=== PATIENT | male | born 1950 | race Caucasian/White ===

== ENCOUNTER 2018-06-07 11:00 | Inpatient (IN) | payer OTHER ==
[~2018-06-07] VITALS: Ht 170.2 cm; Wt 82.6 kg
[2018-06-13] MEDS ORDERED: CELEBREX200MG PO (10:40)
[2018-06-13] MEDS ORDERED: GABAPENTIN800 MG PO (10:41)
[2018-06-13] MEDS ORDERED: EFFEXOR XR75 MG PO (10:41)
[2018-06-13] MEDS ORDERED: [UNRECOGNIZED DRUG - OTHER] PO (10:41)
[2018-06-19] MEDS ORDERED: TRAZODONE HCL150 MG PO (09:19)
[2018-06-20] MEDS ORDERED: DOCUSATE SODIU100 MG PO (12:13)
[2018-06-20] MEDS ORDERED: CLONAZEPAM1 MG PO (12:15)
[2018-06-20] MEDS ORDERED: PERCOCET 5-3251 EACH PO (12:15)
== END 2018-06-20 16:04 | DRG 455 ==
LOC: SURG 06-19 05:00 → O/R 06-19 05:00 → SURH 06-19 07:00 → SURG 06-19 09:55
PROVIDERS: ADMIT Orthopaedic Surgery Orthopaedic Surgery of the Spine
PROC: 0RG2071 Fusion of 2 or more Cervical Vertebral Joints with Autologous Tissue Substitute, Posterior Approach, Posterior Column, Open Approach (ICD-10-PCS; 2018-06-19)
PROC: 0RT30ZZ Resection of Cervical Vertebral Disc, Open Approach (ICD-10-PCS; 2018-06-19)
PROC: 07DS3ZZ Extraction of Vertebral Bone Marrow, Percutaneous Approach (ICD-10-PCS; 2018-06-19)
PROC: 0RG20A0 Fusion of 2 or more Cervical Vertebral Joints with Interbody Fusion Device, Anterior Approach, Anterior Column, Open Approach (ICD-10-PCS; principal; 2018-06-19 07:00)
DX: M50.021 Cervical disc disorder at C4-C5 level with myelopathy (principal); M50.022 Cervical disc disorder at C5-C6 level with myelopathy; M50.023 Cervical disc disorder at C6-C7 level with myelopathy

== ENCOUNTER 2018-09-06 07:43 | Outpatient (CLI) | payer OTHER ==
[~2018-09-06 07:43] MED LIST: CELEBREX200MG PO; CLONAZEPAM1 MG PO; DOCUSATE SODIU100 MG PO; EFFEXOR XR75 MG PO; GABAPENTIN800 MG PO; PERCOCET 5-3251 EACH PO; TRAZODONE HCL150 MG PO; [UNRECOGNIZED DRUG - OTHER] PO
== END 2018-09-06 07:50 | disposition home or self-care (01) ==
LOC: RAD 07:43
DX: M50.00 Cervical disc disorder with myelopathy, unspecified cervical region (principal)